=== PATIENT | female | born 1960 | race Caucasian/White ===

== ENCOUNTER 2021-09-16 00:56 | Day surgery (SDC) | payer OTHER, SELFPAY ==
[2021-09-05 09:41] VITALS: BMI 39.8
--- NOTE | 2021-09-15 12:10 | PM.HPGS ---
History of Present Illness History of Present Illness Consent: Risks, benefits, and alternatives have been discussed and questions answered. Patient agrees to proceed with procedure. 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 Biopsies 4 years ago apparently were negative for Fuentes's. Review of Systems Review of Systems: All systems reviewed & are unremarkable except as noted in HPI and below PMFSH Social History Social History Smoking packs per day: 2 Smoking cigarettes per day: 40.0 Years smoked: 10 Smoking pack-years: 20.00 Smoking status: Former smoker Tobacco type: cigarettes Smoking end date: 10/29/00 Living arrangements: with family Spiritual care concerns: No Meds Home Medications and Allergies Home Medications Medication Instructions Recorded Confirmed Type Estrogen/Progesterone/Testoste 4 pump TRANSDERMAL BID 09/05/21 09/16/21 History Multivitamin Women 50 Plus 1 tablet PO DAILY 09/05/21 09/16/21 History ascorbic acid (vitamin C) [Vitamin 2 g PO DAILY 09/05/21 09/16/21 History C] cholecalciferol (vitamin D3) 100 mcg PO DAILY 09/05/21 09/16/21 History estradiol [Vagifem] 10 mcg VAGINAL 2XW 09/05/21 09/16/21 History fexofenadine 180 mg PO DAILY 09/05/21 09/16/21 History fluticasone propionate 50 mcg INTRANASAL DAILY 09/05/21 09/16/21 History levothyroxine [Synthroid] 137 mcg PO DAILY 09/05/21 09/16/21 History liothyronine 10 mcg PO DAILY 09/05/21 09/16/21 History magnesium citrate 300 mg PO BID 09/05/21 09/16/21 History meloxicam 15 mg PO DAILY 09/05/21 09/16/21 History potassium 140 mg PO DAILY 09/05/21 09/16/21 History vitamin K2 100 mcg PO DAILY 09/05/21 09/16/21 History zinc citrate 30 mg PO DAILY 09/05/21 09/16/21 History pantoprazole 20 mg PO QAM #30 tablet 09/16/21 Rx Allergies Allergy/AdvReac Type Severity Reaction Status Date / Time Cephalosporins Allergy Mild ABN Verified 09/16/21 08:07 MEMBRANE WITH GI SYMPTOMS nitrofurantoin Allergy Mild Hives / Verified 09/16/21 08:07 Red Face erythromycin base AdvReac Mild NAUSEA AND Verified 09/16/21 08:07 VOMITING ALL PENCILLIN Allergy Mild HIVES Uncoded 09/16/21 08:07 NITRATE Allergy Mild HIVES Uncoded 09/16/21 08:07 Exam Resp: Auscultation: clear to auscultation bilaterally Cardio: Rate: regular rate Rhythm: regular rhythm GI: GI Palp: Yes Soft to palpation and No Tenderness to palpation present (GI) Assessment and Plan Assessment and plan (1) Fuentes's esophagus: Code(s): K22.70 - Fuentes's esophagus without dysplasia Status: Acute Assessment and Plan: EGD with possible biopsy or dilatation or cautery.
[2021-09-16 08:08] VITALS: BP 153/76; PULSE 92; RESP 18; TEMP 37; O2SAT 95; BMI 39.8
[2021-09-16] MEDS: LACTATED RINGERS 1,000 ML 150 ML IV CONT (08:11)
--- NOTE | 2021-09-16 08:48 | WPDANESEPPF ---
Anes - Initial Pre Proc Eval Procedure: Operation Date: 09/16/21 09:15 Proposed Procedures p Esophagogastroduodenoscopy - Ervin Rivas MD Date/Time: 09/16/21 08:48 Surgeon: Ervin Rivas MD Pre Op Diagnosis: fuentes's espohagus Patient Data Age: 61 Gender: F Height: 1.6 m Weight: 102 kg Last Vital Signs Temp 98.6 F 09/16/21 08:08 Pulse 92 09/16/21 08:08 Resp 18 09/16/21 08:08 BP 153/76 H 09/16/21 08:08 Pulse Ox 95 09/16/21 08:08 Allergies Allergy/AdvReac Type Severity Reaction Status Date / Time Cephalosporins Allergy Mild ABN Verified 09/16/21 08:07 MEMBRANE WITH GI SYMPTOMS nitrofurantoin Allergy Mild Hives / Verified 09/16/21 08:07 Red Face erythromycin base AdvReac Mild NAUSEA AND Verified 09/16/21 08:07 VOMITING ALL PENCILLIN Allergy Mild HIVES Uncoded 09/16/21 08:07 NITRATE Allergy Mild HIVES Uncoded 09/16/21 08:07 Home Medications Medication Instructions Recorded Confirmed Type Estrogen/Progesterone/Testoste 4 pump TRANSDERMAL BID 09/05/21 09/16/21 History ascorbic acid (vitamin C) [Vitamin 2 g PO DAILY 09/05/21 09/16/21 History C] cholecalciferol (vitamin D3) 100 mcg PO DAILY 09/05/21 09/16/21 History estradiol [Vagifem] 10 mcg VAGINAL 2XW 09/05/21 09/16/21 History fexofenadine [Bhavna] 180 mg PO DAILY 09/05/21 09/16/21 History fluticasone propionate 50 mcg INTRANASAL DAILY 09/05/21 09/16/21 History levothyroxine [Synthroid] 137 mcg PO DAILY 09/05/21 09/16/21 History liothyronine 10 mcg PO DAILY 09/05/21 09/16/21 History magnesium citrate 300 mg PO BID 09/05/21 09/16/21 History meloxicam 15 mg PO DAILY 09/05/21 09/16/21 History [id number]-[id number]-FA-lutein 1 tablet PO DAILY 09/05/21 09/16/21 History [Multivitamin Women 50 Plus] potassium 140 mg PO DAILY 09/05/21 09/16/21 History vitamin K2 100 mcg PO DAILY 09/05/21 09/16/21 History zinc citrate 30 mg PO DAILY 09/05/21 09/16/21 History Patient hx anesthesia problems: none Family hx anesthesia problems: none Results Review: All pre-operative results and documents have been reviewed as part of the pre-operative evaluation. PMFSH Social History Social History Smoking packs per day: 2 Smoking cigarettes per day: 40.0 Years smoked: 10 Smoking pack-years: 20.00 Smoking status: Former smoker Tobacco type: cigarettes Smoking end date: 10/29/00 Living arrangements: with family Spiritual care concerns: No Anes - Eval Final PreProcedure Day of Procedure 09/16/21 08:48 Patient weight: morbidly obese Heart: regular rate and rhythm Lungs: clear to auscultation Airway: Mallampati scale class II Neurological: alert and oriented Last oral intake: >/= 8 hours ASA classification: III Emergent: no Anesthetic plan: proceed Anesthesia type and monitoring: general GIVS and standard monitoring Results Review: All pre-operative results and documents have been reviewed as part of the pre-operative evaluation. Informed Consent: The patient's anesthetic plan and its attendant risks and benefits were discussed with the patient/family/POA. Questions were solicited and answers provided to the satisfaction of the patient/family/POA.
[2021-09-16 09:19] VITALS: BP 152/86; PULSE 81; RESP 15; O2SAT 95
[2021-09-16 09:29] VITALS: BP 155/84; PULSE 74; RESP 14; O2SAT 97
[2021-09-16 09:39] VITALS: BP 159/79; PULSE 82; RESP 17; O2SAT 99
== END 2021-09-16 09:51 | disposition home or self-care (01) ==
PROVIDERS: Visit Provider Internal Medicine Gastroenterology
PROC: 0DJ08ZZ Inspection of Upper Intestinal Tract, Via Natural or Artificial Opening Endoscopic (ICD-10-PCS; CPT 43235; principal; 2021-09-16 09:15)
DX: K21.00 Gastro-esophageal reflux disease with esophagitis, without bleeding (principal); E03.9 Hypothyroidism, unspecified; Z87.891 Personal history of nicotine dependence; E66.9 Obesity, unspecified; Z68.39 Body mass index [BMI] 39.0-39.9, adult
CPT/HCPCS: 43239; 88305; J2704; J7120

== ENCOUNTER 2021-10-19 02:22 | Day surgery (SDC) | payer OTHER, SELFPAY ==
[2021-10-13 08:15] VITALS: BMI 39.0
--- NOTE | 2021-10-18 13:31 | PM.HPGS ---
History of Present Illness History of Present Illness Consent: Risks, benefits, and alternatives have been discussed and questions answered. Patient agrees to proceed with procedure. Chief complaint: melena Narrative: Jamila Bassett is a 61 year old female referred for colonoscopy. She has blood in her stools Detected by recent Hemoccult Review of Systems Review of Systems: All systems reviewed & are unremarkable except as noted in HPI and below PMFSH Social History Social History Smoking packs per day: 1 Smoking cigarettes per day: 20.0 Years smoked: 10 Smoking pack-years: 10.00 Smoking status: Former smoker Tobacco type: cigarettes Smoking end date: 10/29/00 Substance use type: does not use Living arrangements: with family Spiritual care concerns: No Meds Home Medications and Allergies Home Medications Medication Instructions Recorded Confirmed Type Estrogen/Progesterone/Testoste 4 pump TRANSDERMAL BID 09/05/21 10/19/21 History Multivitamin Women 50 Plus 1 tablet PO DAILY 09/05/21 10/19/21 History ascorbic acid (vitamin C) [Vitamin 2 g PO DAILY 09/05/21 10/19/21 History C] cholecalciferol (vitamin D3) 100 mcg PO DAILY 09/05/21 10/19/21 History estradiol [Vagifem] 10 mcg VAGINAL 2XW 09/05/21 10/19/21 History fexofenadine [Bhavna Allergy] 180 mg PO DAILY 09/05/21 10/19/21 History fluticasone propionate 50 mcg INTRANASAL DAILY 09/05/21 10/19/21 History levothyroxine [Synthroid] 137 mcg PO DAILY 09/05/21 10/19/21 History liothyronine [Cytomel] 10 mcg PO DAILY 09/05/21 10/19/21 History magnesium citrate 300 mg PO BID 09/05/21 10/19/21 History meloxicam 15 mg PO DAILY 09/05/21 10/19/21 History potassium 140 mg PO DAILY 09/05/21 10/19/21 History vitamin K2 100 mcg PO DAILY 09/05/21 10/19/21 History zinc citrate 30 mg PO DAILY 09/05/21 10/19/21 History pantoprazole [Protonix] 40 mg PO QAM 10/13/21 10/19/21 History Allergies Allergy/AdvReac Type Severity Reaction Status Date / Time Cephalosporins Allergy Mild ABN Verified 10/19/21 09:23 MEMBRANE WITH GI SYMPTOMS nitrofurantoin Allergy Mild Hives / Verified 10/19/21 09:23 Red Face erythromycin base AdvReac Mild NAUSEA AND Verified 10/19/21 09:23 VOMITING ALL PENCILLIN Allergy Mild HIVES Uncoded 10/19/21 09:23 NITRATE Allergy Mild HIVES Uncoded 10/19/21 09:23 Exam Resp: Auscultation: clear to auscultation bilaterally Cardio: Rate: regular rate Rhythm: regular rhythm GI: GI Palp: Yes Soft to palpation and No Tenderness to palpation present (GI) Assessment and Plan Assessment and plan (1) Melena: Code(s): K92.1 - Melena Status: Acute Assessment and Plan: Colonoscopy with possible biopsy or polypectomy or cautery or injection of substances.
[2021-10-19 09:25] VITALS: BP 142/69; PULSE 92; RESP 17; TEMP 36.9; O2SAT 99; BMI 38.7
[2021-10-19] MEDS: LACTATED RINGERS 1,000 ML 150 ML IV CONT (09:34)
--- NOTE | 2021-10-19 09:45 | WPDANESEPPF ---
Anes - Initial Pre Proc Eval Procedure: Operation Date: 10/19/21 10:30 Proposed Procedures p Colonoscopy - Ervin Rivas MD Date/Time: 10/19/21 09:45 Surgeon: Ervin Rivas MD Pre Op Diagnosis: melena Patient Data Age: 61 Gender: F Height: 1.6 m Weight: 99.3 kg Last Vital Signs Temp 98.4 F 10/19/21 09:25 Pulse 92 10/19/21 09:25 Resp 17 10/19/21 09:25 BP 142/69 H 10/19/21 09:25 Pulse Ox 99 10/19/21 09:25 Allergies Allergy/AdvReac Type Severity Reaction Status Date / Time Cephalosporins Allergy Mild ABN Verified 10/19/21 09:23 MEMBRANE WITH GI SYMPTOMS nitrofurantoin Allergy Mild Hives / Verified 10/19/21 09:23 Red Face erythromycin base AdvReac Mild NAUSEA AND Verified 10/19/21 09:23 VOMITING ALL PENCILLIN Allergy Mild HIVES Uncoded 10/19/21 09:23 NITRATE Allergy Mild HIVES Uncoded 10/19/21 09:23 Home Medications Medication Instructions Recorded Confirmed Type Estrogen/Progesterone/Testoste 4 pump TRANSDERMAL BID 09/05/21 10/19/21 History Multivitamin Women 50 Plus 1 tablet PO DAILY 09/05/21 10/19/21 History ascorbic acid (vitamin C) [Vitamin 2 g PO DAILY 09/05/21 10/19/21 History C] cholecalciferol (vitamin D3) 100 mcg PO DAILY 09/05/21 10/19/21 History estradiol [Vagifem] 10 mcg VAGINAL 2XW 09/05/21 10/19/21 History fexofenadine [Bhavna Allergy] 180 mg PO DAILY 09/05/21 10/19/21 History fluticasone propionate 50 mcg INTRANASAL DAILY 09/05/21 10/19/21 History levothyroxine [Synthroid] 137 mcg PO DAILY 09/05/21 10/19/21 History liothyronine [Cytomel] 10 mcg PO DAILY 09/05/21 10/19/21 History magnesium citrate 300 mg PO BID 09/05/21 10/19/21 History meloxicam 15 mg PO DAILY 09/05/21 10/19/21 History potassium 140 mg PO DAILY 09/05/21 10/19/21 History vitamin K2 100 mcg PO DAILY 09/05/21 10/19/21 History zinc citrate 30 mg PO DAILY 09/05/21 10/19/21 History pantoprazole [Protonix] 40 mg PO QAM 10/13/21 10/19/21 History Patient hx anesthesia problems: none Family hx anesthesia problems: none Results Review: All pre-operative results and documents have been reviewed as part of the pre-operative evaluation. [facility] Social History Social History Smoking packs per day: 1 Smoking cigarettes per day: 20.0 Years smoked: 10 Smoking pack-years: 10.00 Smoking status: Former smoker Tobacco type: cigarettes Smoking end date: 10/29/00 Substance use type: does not use Living arrangements: with family Spiritual care concerns: No Anes - Eval Final PreProcedure Day of Procedure 10/19/21 09:45 Patient weight: obese Heart: regular rate and rhythm Lungs: clear to auscultation Airway: Mallampati scale class II Neurological: alert and oriented Last oral intake: >/= 8 hours ASA classification: III Emergent: no Anesthetic plan: proceed Anesthesia type and monitoring: general GIVS and standard monitoring Results Review: All pre-operative results and documents have been reviewed as part of the pre-operative evaluation. Informed Consent: The patient's anesthetic plan and its attendant risks and benefits were discussed with the patient/family/POA. Questions were solicited and answers provided to the satisfaction of the patient/family/POA.
[2021-10-19 10:43] VITALS: BP 114/64; PULSE 85; RESP 19; O2SAT 98
[2021-10-19 10:53] VITALS: BP 120/79; PULSE 84; RESP 18; O2SAT 100
[2021-10-19 11:03] VITALS: BP 128/77; PULSE 73; RESP 24; O2SAT 98
== END 2021-10-19 11:11 | disposition home or self-care (01) ==
PROVIDERS: Visit Provider Internal Medicine Gastroenterology
PROC: 0DJD8ZZ Inspection of Lower Intestinal Tract, Via Natural or Artificial Opening Endoscopic (ICD-10-PCS; CPT 45378; principal; 2021-10-19 10:30)
DX: K92.1 Melena (principal); Z87.891 Personal history of nicotine dependence; K57.30 Diverticulosis of large intestine without perforation or abscess without bleeding
CPT/HCPCS: 45378; J2704; J7120